=== PATIENT | male | born 1980 | race African-American/Black ===

== ENCOUNTER 2019-03-27 07:44 | Emergency (ER) | payer BC, OTHER ==
[~2019-03-27] VITALS: Ht 170.2 cm; Wt 65.0 kg
[2019-03-27] MEDS ORDERED: BACITRACIN ZINC OINT UDPKT TOP STA (08:13)
[2019-03-27] MEDS ORDERED: IBUPROFEN 800MG TABLET PO ONE (08:15)
[2019-03-27 08:29] VITALS: BP 130/90
== END 2019-03-27 10:03 | disposition home or self-care (01) ==
LOC: ER 07:55
DX: S61.211A Laceration without foreign body of left index finger without damage to nail, initial encounter (principal); S20.211A Contusion of right front wall of thorax, initial encounter; S00.83XA Contusion of other part of head, initial encounter; Y08.89XA Assault by other specified means, initial encounter; Y93.89 Activity, other specified; Y92.89 Other specified places as the place of occurrence of the external cause; Y99.8 Other external cause status; E78.00 Pure hypercholesterolemia, unspecified; I10 Essential (primary) hypertension
CPT/HCPCS: 70160; 71101; 99284

== ENCOUNTER 2021-08-14 07:01 | Emergency (ER) | payer OTHER ==
[~2021-08-14] VITALS: Ht 175.3 cm; Wt 65.0 kg
[~2021-08-14 07:01] MED LIST: DIPH25CA83 MT; PERM60CR4 TP
[2021-08-14 07:16] VITALS: BP 133/96
[2021-08-14] MEDS ORDERED: PERM60CR4 TP (10:29)
[2021-08-14] MEDS ORDERED: DIPH25CA83 MT (10:29)
== END 2021-08-14 10:38 | disposition home or self-care (01) ==
LOC: ER 07:01
DX: R21 Rash and other nonspecific skin eruption (principal); R03.0 Elevated blood-pressure reading, without diagnosis of hypertension
CPT/HCPCS: 99281; 99283

== ENCOUNTER 2023-03-06 13:46 | Emergency (ER) | payer MEDICAID, OTHER ==
[~2023-03-06] VITALS: Ht 180.3 cm; Wt 68.0 kg
[2023-03-06 14:01] VITALS: O2SAT 100
[2023-03-06 15:23] LABS: BASOPHILS % 0.5 % (0.0-2.0); DIFFERENTIAL COMMENT 0; HEMATOCRIT. 37.9 % (42.0-52.0); HEMOGLOBIN. 12.6 g/dL (14.0-18.0); LYMPHOCYTES % 9.3 % (20.0-50.0); MEAN CORPUSCULAR HEMOGLOBIN 34.7 pg (28.0-32.0); MEAN CORPUSCULAR HGB CONC 33.3 g/dL (31.0-37.0); MEAN CORPUSCULAR VOLUME 104.4 fL (80.0-94.0); MEAN PLATELET VOLUME 9.9 fl (7.4-10.4); MONOCYTES % 7.4 % (2.0-8.0); NEUTROPHILS % 82.8 % (40.0-76.0); PLATELET 147 x1000/uL (130-400); RED BLOOD CELL COUNT 3.63 mill/uL (4.7-6.1); RED CELL DISTRIBUTION WIDTH 14.7 % (11.6-14.6); WHITE BLOOD COUNT 7.7 x1000/uL (4.5-11.0)
[2023-03-06 15:36] LABS: ACETAMINOPHEN < 2 ug/mL (10-30); CALCIUM 10.1 mg/dL (8.7-10.4); CARBON DIOXIDE 14 mEq/L (21-32); CHLORIDE 96 mEq/L (98-107); CREATININE 2.6 mg/dL (0.6-1.3); ETHANOL BLOOD 18 mg/dL (<10); GLUCOSE 135 mg/dL (70-105); POTASSIUM 3.3 mEq/L (3.5-5.1); SODIUM 131 mEq/L (136-145); UREA NITROGEN BLOOD 32 mg/dL (9-23)
[2023-03-06 15:59] LABS: *AMPHETAMINES SCREEN URINE NEGATIVE (NEGATIVE); *BARBITURATES SCREEN URINE NEGATIVE (NEGATIVE); *BENZODIAZEPINES SCREEN URINE NEGATIVE (NEGATIVE); *COCAINE SCREEN URINE NEGATIVE (NEGATIVE); CANNABINOID URINE SCREEN NEGATIVE (NEGATIVE); ECSTASY MDMA SCREEN URINE NEGATIVE (NEGATIVE); METHADONE URINE SCREEN Neg (NEGATIVE); OPIATES URINE SCREEN NEGATIVE (NEGATIVE); PHENCYCLIDINE URINE SCREEN NEGATIVE (NEGATIVE)
[2023-03-06] MEDS ORDERED: POTASSIUM CHLORIDE 20MEQ/PACKET PO NR (17:00)
[2023-03-06] MEDS ORDERED: SODIUM CHLORIDE 0.9% 1,000 ML IV ONE (19:00)
[2023-03-07] MEDS ORDERED: LORAZEPAM 0.5MG TABLET PO ONE (02:15)
[2023-03-07 11:08] LABS: CALCIUM 9.8 mg/dL (8.7-10.4); POTASSIUM 4.5 mEq/L (3.5-5.1)
[2023-03-07 11:09] LABS: CREATININE 1.6 mg/dL (0.6-1.3)
[2023-03-07 11:53] LABS: CLARITY URINE CLOUDY (CLEAR); COLOR URINE ORANGE (YELLOW); GLUCOSE URINE NEGATIVE (NEGATIVE); KETONES URINE 1+ (NEGATIVE); LEUKOCYTE ESTERASE URINE TRACE (NEGATIVE); NITRITE URINE NEGATIVE (NEGATIVE); OCCULT BLOOD URINE TRACE (NEGATIVE); PROTEIN URINE 3+ (NEGATIVE); SPECIFIC GRAVITY URINE 1.029 (1.005-1.030)
[2023-03-07 12:35] LABS: BACTERIA URINE FEW; RBC URINE 0-2 /hpf (0-2); SQUAMOUS EPITHELIAL CELL URINE NONE SEEN /lpf (RARE/1+)
[2023-03-07 12:36] VITALS: BP 152/89; PULSE 89; RESP 18; TEMP 98.1
[2023-03-07 12:36] LABS: YEAST URINE NONE SEEN
== END 2023-03-07 12:37 | disposition home or self-care (01) ==
LOC: ER 13:46
DX: R44.1 Visual hallucinations (principal); F32.9 Major depressive disorder, single episode, unspecified; E78.00 Pure hypercholesterolemia, unspecified; I10 Essential (primary) hypertension; Z79.899 Other long term (current) drug therapy; Z20.822 Contact with and (suspected) exposure to COVID-19
CPT/HCPCS: 80305; 80048 ×2; 80307; 80329; 80320; 85025; 36415 ×2; 99285; 81003; 82550; 87426; J7030; Z7610; G0480

== ENCOUNTER 2024-12-17 14:38 | Emergency (ER) | payer MEDICAID ==
[~2024-12-17] VITALS: Ht 175.3 cm; Wt 68.0 kg
[~2024-12-17 14:38] MED LIST changes: +GABA-1180 MT; +IBUP-2437 PO; +MIRT-90 PO; +OLAN-37 MT; +PERM60CR20 TP; -PERM60CR4 TP; +PROT40 MT
[2024-12-17 14:47] VITALS: O2SAT 98
[2024-12-17] MEDS: PANTOPRAZOLE SODIUM 40 MG/VIAL IV ONE (15:00)
[2024-12-17 15:40] LABS: HEMATOCRIT. 42.8 % (42.0-52.0); HEMOGLOBIN. 14.3 g/dL (14.0-18.0); MEAN PLATELET VOLUME 9.7 fl (7.4-10.4); PLATELET 232 x1000/uL (130-400); RED BLOOD CELL COUNT 4.58 mill/uL (4.7-6.1); RED CELL DISTRIBUTION WIDTH 13.7 % (11.6-14.6)
[2024-12-17] MEDS: ONDANSETRON HCL 4MG/2ML INJ IV ONE (15:51)
[2024-12-17] MEDS: SODIUM CHLORIDE 0.9% 1,000 ML IV ONE (15:51)
[2024-12-17 15:55] LABS: CREATININE 1.0 mg/dL (0.6-1.3)
[2024-12-17 15:56] LABS: TROPONIN I HIGH SENSITIVITY 7 ng/L (3.0-53); UREA NITROGEN BLOOD 16 mg/dL (9-23)
[2024-12-17 15:57] LABS: ASPARTATE AMINOTRANSFERASE 21 IU/L (<34)
[2024-12-17 15:58] LABS: BILIRUBIN DIRECT 0.2 mg/dL (<=3.0); BILIRUBIN TOTAL 0.5 mg/dL (0.1-1.0); PROTEIN TOTAL 7.1 g/dL (6.0-8.3)
[2024-12-17 16:55] LABS: LYMPHOCYTES % MANUAL 7.0 % (20.0-50.0); MONOCYTES % MANUAL 11.0 % (2.0-8.0); NEUTROPHILS % MANUAL 82.0 % (45.0-75.0); PLATELET ESTIMATE NORMAL
[2024-12-17] MEDS: KCL 20MEQ/100ML PREMIX 100 ML IV ONE (17:26)
[2024-12-17 20:14] VITALS: BP 129/65; PULSE 93; RESP 12; TEMP 36.8; O2SAT 100
[2024-12-17] MEDS ORDERED: ONDA-241 MT (20:15)
== END 2024-12-17 20:17 | disposition home or self-care (01) ==
LOC: ER 14:38
DX: N20.0 Calculus of kidney (principal); E78.00 Pure hypercholesterolemia, unspecified; I10 Essential (primary) hypertension; Z79.899 Other long term (current) drug therapy
CPT/HCPCS: 80076; 80048; 80320; 83690; 85025; 84484; 36415; 76705; 96361; 96365; 96375; 99285; J2405; J2470; J3480; G0480